=== PATIENT | female | born 1985 | race Caucasian/White ===

== ENCOUNTER 2016-11-18 09:59 | Inpatient (IN) | payer SELFPAY ==
[2016-11-18] VITALS (14 sets, daily range): BP systolic 113–148; BP diastolic 61–97; PULSE 66–88; RESP 14–20; O2SAT 98–100
[~2016-11-18] VITALS: Ht 160 cm; Wt 59.1 kg
--- NOTE | 2016-11-18 10:14 | ED.REPORT ---
HPI-Rash / Abscess Date of Service Nov 18, 2016 ED Provider: Sathish Phillips MD Patient is a 31 y/o female with a hx of meth and herion drug use, presenting to the ED c/o abscess on the right shoulder. Her last heroin use was two days ago. She recently took 2 mg of buprenorphine, approx 7 hours ago. There are no other abbesses present on her body at this time was. Associated symptoms are myalgia and generalized weakness. She denies fever, neck pain, vomiting, and abdominal pain. She reports to have been clean off heroin for 22 months but relapsed 7 months ago. She reports that she has been septic before and that these symptoms feel similar. She has hep. C and does not take any daily medication. She last ate at 1730 last night. Nursing Notes Stated Complaint: ABSCESS Chief Complaint: Extremity Trauma Nursing Notes Reviewed: Yes Allergies: Coded Allergies: No Known Allergies (Unverified , 11/18/16) General Time Seen by MD: 10:13 Chief Complaint Abscess Hx Obtained From: Patient Arrived By: Walk-in Associated with: Reports Myalgia, Reports Weakness Recent Healthcare: No recent doctor visit, No recent hospitalization Similar Sx Previous: Yes (abscess drainage x3) Past Medical History Past Medical History Hep C. Reports: Heroin use, IV Drug use Past Surgical History Abscess drainage x3 Left femoral blood clot Facial SX R/T dog bite Family History denies Smoking History Unknown if Ever Smoker Social History Drug Use: IV drugs, Meth, Other Ambulatory Status Independent Review of Systems Constitutional: Reports: Weakness - generalized, Denies: Fever GI: Denies: Abdominal pain, Vomiting Musculoskeletal: Reports: Myalgia, Denies: Neck pain Complete sys rev & neg: except as marked. Physical Exam Initial Vital Signs Vital Signs (First) Date Time Temp Pulse Resp B/P Pulse Ox O2 Delivery O2 Flow Rate FiO2 11/18/16 10:03 36.7 85 120/79 Initial VS: Reviewed, Vital signs normal Head / Eyes: Atraumatic, Normocephalic Neck: Full range of motion Respiratory: Breath sounds normal, Clear to auscultation, No respiratory distress Cardiovascular: Regular rate & rhythm, Heart sounds normal, Intact distal pulses Abdomen / GI: Soft, Non-tender Neurologic: Alert, Oriented General/Constitutional: Awake, Alert Behavior: Positive: Anxious Abscess #1 Location/Condition: Positive: Erythema surrounding, Fluctuant, Location (right deltoid), Tender Right Shoulder: Positive: Tenderness present... Abscess present on the right deltoid Interpretation & Diagnostics Lab Results Interpretation Result Diagram: 11/18/16 1058 11/18/16 1058 Test 11/18/16 10:58 White Blood Count 9.2th/mm3 (3.8-10.1) Red Blood Count 5.00mil/mm3 (3.90-5.20) Hemoglobin 13.5g/dL (12.0-15.6) Hematocrit 42.4% (35.0-46.0) Mean Corpuscular Volume 84.8fL (81-100) Mean Corpuscular Hemoglobin 27.0pg (27.0-35.0) Mean Corpuscular Hemoglobin Concent 31.8% (32.0-37.0) Red Cell Distribution Width 14.0% (12.3-15.4) Platelet Count 362bil/L (150-400) Neutrophils (%) (Auto) 75.9% (40-74) Lymphocytes (%) (Auto) 17.8% (14-46) Monocytes (%) (Auto) 4.4% (4-12) Eosinophils (%) (Auto) 1.5% (0-5) Basophils (%) (Auto) 0.2% (0-3) Sodium Level 139mEq/L (134-144) Potassium Level 4.5mEq/L (3.5-5.2) Chloride Level 98mEq/L (97-108) Carbon Dioxide Level 25mmol/L (18-29) Blood Urea Nitrogen 18mg/dL (6-20) Creatinine 0.55mg/dL (0.57-1.00) Estimat Glomerular Filtration Rate 183mL/min (>59) Glucose Level 90mg/dL (60-99) Lactic Acid Level 1.6mmol/L (0.4-2.0) Calcium Level 9.8mg/dL (8.5-10.1) Total Bilirubin 0.2mg/dL (0.0-1.2) Aspartate Amino Transf (AST/SGOT) 28U/L (0-50) Alanine Aminotransferase (ALT/SGPT) 21U/L (0-32) Alkaline Phosphatase 120U/L (25-150) Total Protein 9.4g/dL (6.4-8.4) Albumin 4.3g/dL (3.4-5.0) Procedures Incision & Drainage Abscess Time: 10:30 Procedure Performed by: ED physician Location of Abscess: Right shoulder Re-Eval/Medical Decision Re-Evaluation/Progress : Time of Eval: 11:36 Re-Evaluation/Progress Note: Rececked pt. Discussed plan of admmission for surgery. Pt understands and agrees with the plan. All questions addressed at this time. Consultation #1: Referral / Consult Name: Kirby De León MD Consulted With: Surgeon Call Returned at: 10:51 Marketing Analytics Specialist: Will see patient, Agrees with eval, Agrees with plan, Requested OR, Accepts admit Note: Discussed patients case, accepts to OR, requeting hospitalist consult. Consultation #2: Referral / Consult Name: Kimberly Swain DO Consulted With: Hospitalist Call Returned at: 11:14 Marketing Analytics Specialist: Will see patient, Agrees with eval, Agrees with plan Note: Discussed patients case, agrees to consult. Counseled Regarding: Diagnosis, Lab results, Need for admission Discharge & Departure Impression: Primary Impression: Abscess Additional Impression: Opiate addiction Disposition: ADMITTED TO HOSPITAL Discharge Condition All VS Reviewed: Yes Condition: Stable Referrals: Dany Medina MD (PCP) Scribe Attestation Portions of this note were transcribed by Perla Valdez & Katy Barfield. I, Dr. Steward personally performed the history, physical exam and medical decision-making; I reviewed and confirmed the accuracy of the information in the transcribed note. Signed by: Perla Barfield.Kobe, 11/18/2016 and 11:38. copies to: Dany Medina MD, Kirk H MD Nov 18, 2016 10:14 Perla Valdez Nov 18, 2016 10:21 KATY BARFIELD Nov 18, 2016 11:31
[2016-11-18] MEDS ORDERED: 0.9% Sodium Chloride 1,000 ML IV ONE (10:35)
[2016-11-18 11:08] LABS: BASOPHILS % (AUTO) 0.2 % (0-3); EOSINOPHILS % (AUTO) 1.5 % (0-5); MONOCYTES % (AUTO) 4.4 % (4-12); Mean Corpuscular Volume 84.8 fL (81-100); NEUTROPHILS % (AUTO) 75.9 % (40-74); Platelet Count 362 bil/L (150-400)
--- NOTE | 2016-11-18 11:51 | PCM.HPSURG ---
Subjective Date of Service: Nov 18, 2016 Referring Provider: Admitting Physician: Kirby De León MD Primary Care Physician: Dany Medina MD Attending Physician: Kirby De León MD Chief Complaint R shoulder pain and swelling History of Present Illness 31-year-old IV/IM heroin user presents to the emergency department with right shoulder swelling for the last 2 weeks. She reports it started small and she thought it would go away however it has continued to enlarge. She is feeling achy and like she is septic which she has been before. She has a history of multiple abscesses in multiple locations over her body. She in fact has had her right deltoid abscess drained before. She had not used drugs for 22 months before her relapse 7 months ago. Her last heroin use was about 48 hours ago and 7 hours prior to arrival she used 2 mg of Suboxone. In the emergency department she is afebrile, normotensive, is not experiencing tachycardia. Her white count is normal. No history of MRSA infection and takes no medications at home with the exception of occasional Suboxone. Allergy Allergies: Coded Allergies: No Known Allergies (Unverified , 11/18/16) Past Surgical History Operations: Multiple locations of abscess incision and drainage Social History Occupation: not currently working Hx Alcohol Use: No Hx Substance Use: Yes (HEROIN via injection, METH via inhalation) Hx Tobacco Use: Yes PMH Other History Diabetes: No Other History/Comments Deep vein thrombosis and left femoral vein 6 years ago. Used Coumadin but is not currently. Hepatitis C, no current treatment Patient lives in [place], is but . She has 2 children. Social History Hx Alcohol Use: NoHx Substance Use: Yes (HEROIN, METH) Smoking Status: Current Every Day Smoker (1/2-1 pk per day) Living Arrangement: with Family Family History Family History: Patient reports no significant family history of medical illness. Review of Systems Constitutional: Reports: Malaise, Denies: Chills, Fever Cardiovascular: Denies: Chest Pain Respiratory: Denies: Cough Gastrointestinal: Denies: Nausea, Vomiting Genitourinary: Denies: Dysuria, Hematuria Musculoskeletal: Reports: Redness (right deltoid), Swelling (right deltoid) Skin: Reports: Scars (diffuse in many areas of the body from incision and drainage) Psychologic: Reports: Nervousness, Denies: Disorientation Additional Information A comprehensive review of systems was conducted with the patient and found to be negative except as above and in the History of Present Illness. H&P Surgical Exam Exam General: Cooperative, Mild Distress Neck: Supple Lungs: Clear to Auscultation, Normal Air Movement Heart: Regular Rate/Rhythm, No Murmurs/Rubs/Gallops Abdomen: Benign Extremities: Other (erythematous swollen annular area over right deltoid measuring approximately 15 cm in diameter) Neuro: Grossly Neurologically Intact Catheters: None Lab & Micro Results: White blood cell count normal at 9.2. Lactic acid 1.6. Diagnostics: negative urine test Assessment & Plan Assessment 31-year-old intravenous heroin user presents to the emergency department with right deltoid abscess gradually getting bigger over the last 2 weeks. She has history of DVT 6 years ago. Last substance use with 2 mg of Suboxone early the morning of 11/18/2016. Urine test in the ED negative. Plan: 1. Patient will go to surgery for incision and drainage today. 2. Consult hospitalist team for pain control and antibiotics. 3. Wound care consult for Sunday. Patient was admitted under inpatient status with expected length of stay greater than 2 midnights due to severity of presenting symptoms, and extent of abscess. Resuscitation Status: CPR: Attempt Resuscitation Attending Statement: I personally interviewed and examined the pt, and I agree with Dr. Cohen's assessment and plan. copies: Kirby De León MD, Erika R DO Nov 18, 2016 11:51 Kirby De León MD Nov 21, 2016 06:57
[2016-11-18] MEDS: fentaNYL-PF 50 mCg/mL 2 mL Inj IVPUSH PRN ×3 (11:55→21:55)
[2016-11-18] MEDS ORDERED: Vancomycin Dose per Pharmacist XX ONE (12:15)
[2016-11-18] MEDS ORDERED: Meropenem Inj 1,000 MG in 0.9% Sodium Chloride 100 ML IV ONE (12:15)
[2016-11-18] MEDS ORDERED: Clindamycin Inj 900 MG in IV Premix 1 EACH IV ONE (12:15)
[2016-11-18] MEDS ORDERED: Vancomycin Inj 1,000 MG in IV Premix 1 EACH IV ONE (12:25)
--- NOTE | 2016-11-18 12:32 | PCM.HPANE ---
Patient Data Surgeon Admitting Provider:Kirby De León MD Attending Provider:Kirby De León MD Primary Care Physician:Dany Medina MD Other Provider: Reason for Visit Abscess Ht/WT & BMI Height (Feet): 5 Height (Inches): 3 Weight (Kilograms): 59.09 Body Mass Index Allergies Coded Allergies: No Known Allergies (Unverified , 11/18/16) Past Anesthesia History Anesthesia History: Denies:: Abnormal Airway, Anesthesia Reactions, Difficult Intubation, Fam Anesthesia Reaction, Fam Malignant Hypertherm, Malignant Hyperthermia Diabetes History Hx Diabetes?: No Medications Hypertension Medication: No Home Meds Incl Beta Felix: No History History of ENT Problems?: No HEENT History: Denies:: Abnormal Airway Cataracts Difficult Intubation Dysphagia Glaucoma Hearing Problem Sinus Problem TMJ Denture Type: None Teeth Condition: Within Normal Limits Hx of Heart Problems?: No Cardiovascular History: Denies:: AICD Abdominal Aortic Aneurism Atrial Fibrillation Cardiac Surgery Chest Pain Congestive Heart Failure Coronary Artery Disease Edema Heart Murmur Hypertension Irregular Heartbeat Pacemaker Peripheral Vascular Rheumatic Fever Thrombophlebitis Valvular Heart Disease Hx of Respiratory Problem?: No Respiratory History: Denies:: Asthma COPD Chest Surgery Cough Dyspnea Emphysema Hemoptysis Oxygen Administration Pneumonia Pulmonary Embolism Tuberculosis Use of C-PAP Machine Use of Inhalers / NEBS Hx Neurologic Problems?: No Neurological History: Denies:: Alzheimer's Disease CVA Dementia Dizziness Headaches Multiple Sclerosis Parkinson's Disease Peripheral Neuropathy Seizures TIA Hx of GI Problems?: No Hx of Problems?: No Hx Musculoskeletal Problems?: No Hx of Psycho/Social Problems?: Yes Psycho Social History: Positive for:: Anxiety Hx Surgeries?: Yes (ABSCESS DRAINAGE X3, LEFT FEMORAL BLOOD CLOT, FACIAL SX R/ T DOG BITE) Hx Diabetes: No Occupation: not currently working Hx Alcohol Use: YesHx Substance Use: Yes (HEROIN via injection, METH via inhalation) Smoking Status: Current Every Day Smoker (1/2-1 pk per day) Unknown if Ever Smoker Stop/Bang Treated for Sleep Apnea?: No Do You Have a CPAP Machine?: No CAITLYN Risk Assessment: Low Risk, <3 Yes Risk Assessment Category Category 1A: Patient has history of documented sleep apnea, and HAS NOT received any narcotic, sedative or anesthesia administration during this stay. Category 1B: Patient has history of documented sleep apnea, and HAS received any narcotic , sedative or anesthesia administration during this stay Category 2: Patient has SUSPECTED Obstructive Sleep Apnea, and HAS received any narcotic , sedative or anesthesia administration during this stay. Category 3: Patient has SUSPECTED Obstructive Sleep Apnea and HAS NOT received narcotic, sedative or anesthesia administration during this stay. Category 4: Outpatient in Procedural Areas with known sleep apnea or who screen positive for High Risk via the STOP/BANG questionnaire. Exam Exam Vital Signs Vital Signs Date Time Temp Pulse Resp B/P Pulse Ox O2 Delivery O2 Flow Rate FiO2 11/18/16 11:31 37.5 11/18/16 10:03 36.7 85 120/79 General Appearance: Oriented X3 HEENT/AIRWAY: MP 2 Lungs: Clear to Auscultation, Normal Air Movement Heart: Regular Rate/Rhythm, No Murmurs/Rubs/Gallops Meds/Labs/Diagnostics Admission Meds Current Medications Sodium Chloride (Normal Saline) 1,000 ml @ 0 mls/hr Q0M ONCE IV Last administered on 11/18/16t 11:29; Start 11/18/16 at 10:35; Stop 11/18/16 at 10:37; Status DC Labs Test 11/18/16 10:58 11/18/16 12:16 White Blood Count 9.2th/mm3 (3.8-10.1) Red Blood Count 5.00mil/mm3 (3.90-5.20) Hemoglobin 13.5g/dL (12.0-15.6) Hematocrit 42.4% (35.0-46.0) Mean Corpuscular Volume 84.8fL (81-100) Mean Corpuscular Hemoglobin 27.0pg (27.0-35.0) Mean Corpuscular Hemoglobin Concent 31.8% (32.0-37.0) Red Cell Distribution Width 14.0% (12.3-15.4) Platelet Count 362bil/L (150-400) Neutrophils (%) (Auto) 75.9% (40-74) Lymphocytes (%) (Auto) 17.8% (14-46) Monocytes (%) (Auto) 4.4% (4-12) Eosinophils (%) (Auto) 1.5% (0-5) Basophils (%) (Auto) 0.2% (0-3) Sodium Level 139mEq/L (134-144) Potassium Level 4.5mEq/L (3.5-5.2) Chloride Level 98mEq/L (97-108) Carbon Dioxide Level 25mmol/L (18-29) Blood Urea Nitrogen 18mg/dL (6-20) Creatinine 0.55mg/dL (0.57-1.00) Estimat Glomerular Filtration Rate 183mL/min (>59) Glucose Level 90mg/dL (60-99) Lactic Acid Level 1.6mmol/L (0.4-2.0) Calcium Level 9.8mg/dL (8.5-10.1) Total Bilirubin 0.2mg/dL (0.0-1.2) Aspartate Amino Transf (AST/SGOT) 28U/L (0-50) Alanine Aminotransferase (ALT/SGPT) 21U/L (0-32) Alkaline Phosphatase 120U/L (25-150) Total Protein 9.4g/dL (6.4-8.4) Albumin 4.3g/dL (3.4-5.0) Plan Impression Patient chart reviewed, patient interviewed and anesthestic plan with risks, benefits, and alternatives discussed, and informed consent obtained. ASA Physical Status: ASA3 Plus Emergency Anesthetic Plan: GA Bene/Risks/Altern/Consents: Yes HP Complete Prior to Induction: Yes Gage Flores MD Nov 18, 2016 12:32
[2016-11-18] MEDS ORDERED: Lactated Ringer's 500 ML IV PRN (12:33)
[2016-11-18] MEDS ORDERED: Lactated Ringer's 1,000 ML IV SCH (12:33)
[2016-11-18] MEDS ORDERED: Dexamethasone 4 mg/mL Inj IVPUSH PRN (12:35)
[2016-11-18] MEDS ORDERED: Ondansetron 2 mg/mL 2 mL Inj IVPUSH PRN (12:35)
[2016-11-18] MEDS ORDERED: HYDROmorphone 1 mg/mL Inj IVPUSH PRN (12:35)
[2016-11-18] MEDS ORDERED: MetoCLOpramide 5 mg/mL 2 mL Inj IVPUSH PRN (12:35)
[2016-11-18] MEDS ORDERED: Phenylephrine 10,000 mCg/mL Inj IVPUSH PRN (12:35)
[2016-11-18] MEDS ORDERED: fentaNYL-PF 50 mCg/mL 2 mL Inj IVPUSH PRN (12:35)
[2016-11-18] MEDS ORDERED: EPHEDrine Sulfate 50 mg/mL Inj IVPUSH PRN (12:35)
--- NOTE | 2016-11-18 13:52 | PCM.ANEP1 ---
Post Anesthesia PACU Phase 1 Assessment Vital Signs Vital Signs Date Time Temp Pulse Resp B/P Pulse Ox O2 Delivery O2 Flow Rate FiO2 11/18/16 12:56 86 14 133/81 100 Room Air 11/18/16 12:35 86 14 133/81 100 Room Air 11/18/16 11:31 37.5 11/18/16 10:03 36.7 85 120/79 Anesthetic Administered: GA Level of Alertness: Sleepy, easy to arouse Pain: No Pain Scale Score: 8 Nausea or Vomiting: No CV Function & Hydration Stable: Yes Airway Device: Lungs: Clear to Auscultation, Normal Air Movement PACU Phase 2 Assessment Patient Instructions Provided: N/A Gage Flores MD Nov 18, 2016 13:52
--- NOTE | 2016-11-18 14:26 | OP ---
[address] [address] OPERATIVE REPORT PATIENT: SHIMA NEIL : 1985 MR#: [id number] ADMIT: 11/18/2016 JOB ID: [id number] DATE OF SURGERY: 11/18/2016 SURGEON: Kirby De León M.D. TYPIST: Adri Cohen, resident 1. ANESTHESIA: General. PREOPERATIVE DIAGNOSIS(ES): A right shoulder/deltoid abscess. POSTOPERATIVE DIAGNOSIS(ES): A right shoulder/deltoid abscess. PRINCIPAL PROCEDURE: Incision and drainage of large right shoulder/deltoid abscess. INDICATION FOR PROCEDURE: The patient is a 31-year-old female with IV heroin drug abuse who has had multiple prior incisions and drainages of various abscesses. The patient presented to the emergency department today with a large tender right deltoid/shoulder abscess. PRINCIPAL FINDING: Successful I and D. The incision was 15 cm. Cultures were obtained and sent. PROCEDURE COURSE: The patient was brought to the operating table after receiving IV antibiotics in the emergency department. The patient was given SCDs and she was provided with general anesthesia. A time-out was performed. The patient's right shoulder region was then prepped and draped in the usual sterile fashion. Next, using a syringe and needle, we aspirated pus directly over the fluctuant area and this was sent for cultures. Next, along the fluctuant area in a diagonal fashion, the skin incision was made across the deltoid and shoulder region and we encountered and drained copious amount of purulent pus. The abscess cavity was then unroofed in all directions to make sure nothing was undrained. Subcutaneous was irrigated. Hemostasis was verified. Some necrotic material was excised. We did not get into the shoulder joint. After copious irrigation and hemostasis, the wound was then packed with Kerlix soaked in saline. The length of the incision across the shoulder joint was approximately 15 cm. A sterile dressing was then placed over the wound. The patient was then awakened and taken back to the recovery room in stable satisfactory condition. By the end of the procedure, needle counts and sponge counts were correct.
[2016-11-18] MEDS ORDERED: HYDROmorphone 2 mg/mL Inj ONE (14:34)
[2016-11-18] MEDS ORDERED: MetoCLOpramide 5 mg/mL 2 mL Inj ONE (14:34)
[2016-11-18] MEDS ORDERED: Propofol 10,000 mCg/mL 20 mL Inj ONE (14:34)
[2016-11-18] MEDS ORDERED: Ondansetron 2 mg/mL 2 mL Inj ONE (14:34)
--- NOTE | 2016-11-18 15:34 | NUR ---
received to room 1029 from PACU pt drowsy but arouses easily. VSS, dressing C/D/I, ortho signs OK, denies nausea, boyfriend here with belongings, called security to lock up belongings in closet because pt is an active Heroin user.
[2016-11-18] MEDS: HYDROmorphone 1 mg/mL Inj IVPUSH PRN ×2 (17:47→21:55)
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
[2016-11-18] MEDS ORDERED: Piperacillin-Tazo 3.375 Gm Inj 3.375 GM in Dextrose 5% Minibag Plus 50 ML IV SCH (22:00)
[2016-11-18] MEDS: Vancomycin Inj 1,000 MG in IV Premix 1 EACH IV SCH (22:07)
[2016-11-19] MEDS: HYDROmorphone 1 mg/mL Inj IVPUSH PRN ×3 (05:22→13:13)
[2016-11-19] MEDS: Vancomycin Inj 1,000 MG in IV Premix 1 EACH IV SCH (05:22)
[2016-11-19 05:33] VITALS: BP 120/81; PULSE 70; RESP 16; O2SAT 99
--- NOTE | 2016-11-19 06:39 | NUR ---
Heroin/pain/anxiety Refusal to lock personal items in locker, significant other instead places items in car. 1999 pt and boyfriend state it is okay to lock items in locker, called security to lock items. 2129 pt wakes up, NAC and clinic charge nurse enter pt room while she has belongings in bed with her and pt requests AMA. Notified of dangers and risks. Pt agrees to surrend belongings to staff and remain in hospital for treatment of infection- heroin, needle, and other paraphenalia willingly surrendered to staff, collected and removed by security at 2139. Pt understands she must keep door and window to cuevas open, encouraged to discuss anxiety and pain with staff and prevent relapse to drug use. 2144 given dilauded and ativan for pain/withdrawals. Boyfriend remains sleeping in room. No further incidents this shift. Wound is weeping serous drainage, pt refuses ice. Ibuprofen also given for swelling. Care continues
[2016-11-19 07:24] LABS: BASOPHILS % (AUTO) 0.8 % (0-3); EOSINOPHILS % (AUTO) 4.3 % (0-5); MONOCYTES % (AUTO) 7.8 % (4-12); Mean Corpuscular Hemoglobin 27.6 pg (27.0-35.0); Mean Corpuscular Volume 82.8 fL (81-100); NEUTROPHILS % (AUTO) 58.2 % (40-74); Platelet Count 308 bil/L (150-400)
[2016-11-19] MEDS ORDERED: HYDROcodone-APAP 5-325 mg Tablet PO PRN (07:40)
--- NOTE | 2016-11-19 07:45 | PCM.PNSURG ---
Subjective Visit Information: Reason for Visit Abscess Surgery/Surgery Date Post-Op Day # Date of Admission: Nov 18, 2016 at 11:20 Hospital Day # Subjective: no acute events overnight, tolerated diet, on IV abx Objective Objective Awake in bed R shoulder wound -- dressing changed at bedside, no evidence of pus in the wound Vital Sign- Last 8 Hours Date Time Temp Pulse Resp B/P Pulse Ox O2 Delivery O2 Flow Rate FiO2 11/19/16 05:33 36.4 70 16 120/81 99 Room Air 11/18/16 23:56 36.5 79 16 113/69 98 Room Air Intake and Output- Last 8 Hour 11/19/16 Cumulative From/Thru 07:00 11/18/16 10:03 - 11/19/16 05:52 Intake Total 1137 ml 2991 ml Output Total 750 ml 750 ml Balance 387 ml 2241 ml Intake Oral 1137 ml 1491 ml IV Total 1500 ml Output Urine Total 750 ml 750 ml # Voids 1 # Bowel Movements 0 0 Result Diagram: 11/19/16 0500 11/18/16 1058 Assessment & Plan Impression POD #1 s/p R shoulder abscess I & D IVDA Problems: Plan pipeman to see tomorrow Continue IV abx Pain control VTE Prophylaxis: Sub-Q Enoxaparin Resuscitation Status: CPR: Attempt Resuscitation Kirby De León MD Nov 19, 2016 07:45
[2016-11-19] MEDS ORDERED: Piperacillin-Tazo 3.375 Gm Inj 3.375 GM in Dextrose 5% Minibag Plus 50 ML IV SCH (08:00)
[2016-11-19 09:11] VITALS: BP 121/80; PULSE 73; RESP 18; O2SAT 100
[2016-11-19] MEDS ORDERED: Vancomycin Dose per Pharmacist XX SCH (11:41)
[2016-11-19 13:01] VITALS: BP 128/80; PULSE 83; RESP 18; O2SAT 99
--- NOTE | 2016-11-19 14:21 | PCM.PHAPRO ---
Progress Medical management VANCOMYCIN DOSING PER PHARMACY Indication: Abscess WBC: 7.8; afebrile SCr: 0.55 (stable) Blood cultures: NGTD Current dose: 1,000mg Q8h Trough: 15.3 A/P -Therapeutic level. Trough drawn prior to 4th dose factoring in load or same strength. Debridement on 11/18. -Will continue with vancomycin 1,000 mg Q8h -Concerned about accumulation since with no true loading dose given. Will draw repeat trough 11/20@1200 Rigo Hylton, PharmD Rigo Hylton Nov 19, 2016 14:21
--- NOTE | 2016-11-19 14:26 | NUR ---
pt left AMA "I don't care if I get kicked out, I have to go outside" Pt repeatedly demanded to be allowed to leave unit and smoke or take a walk. She was informed multiple times that pts are not allowed to leave floor unaccompanied by staff. She threatened to leave AMA several times since admit, because we "weren't doing anything for her". She was also informed of the possibility that ER may refuse to readmit her if she leaves AMA. She was accompanied by her boyfriend Gage.
--- NOTE | 2016-11-19 16:04 | NUR ---
Social Work Note: Screen Note/Substance Use Assessment Data& Assessment: Ricarda Cho is a 31 year old female admitted on 11/18/2016 for abscess. Pt is listed as self pay insurance coverage with Lawrence Medina MD for primary care. Pt lives in [place] but is currently homeless. Current Circumstances: Pt presented to ED with abscess due to IV heroin use. Per MD order, SW met with pt at bedside to discuss substance use hx and offer resources. Hx of Substance Use: Pt reports using $60-80 worth of heroin daily as well as smoking meth. Pt states that she has been using heroin for 17 years. Hx of tx programs/detox: Pt reports going to inpt tx 5 times including [facility] in and [facility] in [facility]. Pt has also been involved in out pt tx at [facility]. Hx of w/d symptoms: Pt reports sweats, anxiousness, and irritability. Family hx: Pt mother is dependent on prescription pills. Hx of sobriety: Pt reports sobriety for 22 months with her terri being her strongest support in remaining clean. Pt states that she had teeth pulled 7 months ago and was prescribed Percocet which led to her relapse. Patients Perception of the consequences of use: Pt does not not appear to have good insight into the connection between her decline in health and her substance use. Suicide Risk: Pt denies any thoughts of harming herself or others. Pt denies any SI. Pt provided with Crisis Line number to reference if she ever felt unsafe or suicidal in the future. Motivation for tx: Pt interested in Subaxone or Methadone tx program. Pt aware of [facility] and had begun the process of being established with their program, however she did not have insurance and was not able to proceed. Pt accepted Substance Use resource information. Pt informed that if she stays another night, [facility] staff would be able to meet with her at bedside to discuss treatment program options. Pt states she is unsure if she will leave AMA or not due to wanting a cigarette. Discharge Plan: [facility] provided pt with needle exchange program information, CD resources, Crisis Line information and Medicaid application to complete and bring to [facility] on an outpt basis. Pt did elope to smoke a cigarette after being told she would not be able to return to her room and would have to be readmitted to the hospital through the ED. Pt resources provided by [facility] with pt belongings. If pt returns, SW to call [facility] to help pt sign up for Medicaid pending eligibility and have pt sign MARTINA to speak with [facility] staff at bedside to discuss treatment options. SHAWNA Meyer
--- NOTE | 2016-11-20 00:51 | PCM.PNMED ---
Subjective Date of Service Nov 20, 2016 Subjective Patient was seen by the staff on several occasions trying to use drugs in her room, she was told to limit number of visitors per hospital policy. She was also told not to leave the facility, but patient left to go outside to have a smoke. As this is considered elopment, patient's IV is removed and she was asked to leave the are and get readmitted to the hospital via ED. I have not had a chance to see the patient before patient eloped. It appears that the primary team surgeon Dr. De León has seen the patient for a dressing change , he was notified of patient's elopement Nursing notes: "pt left AMA "I don't care if I get kicked out, I have to go outside" Pt repeatedly demanded to be allowed to leave unit and smoke or take a walk. She was informed multiple times that pts are not allowed to leave floor unaccompanied by staff. She threatened to leave AMA several times since admit, because we "weren't doing anything for her". She was also informed of the possibility that ER may refuse to readmit her if she leaves AMA. She was accompanied by her boyfriend Gage. " Exam Vital Signs Vital Sign - Last Date Time Temp Pulse Resp B/P Pulse Ox O2 Delivery O2 Flow Rate FiO2 11/19/16 13:01 36.9 83 18 128/80 99 Room Air 11/18/16 13:45 8 Intake and Output 11/19/16 11/19/16 11/20/16 Cumulative From/Thru 15:00 23:00 07:00 11/18/16 10:03 - 11/19/16 05:52 Intake Total 2991 ml Output Total 750 ml Balance 2241 ml Intake Oral 1491 ml IV Total 1500 ml Output Urine Total 750 ml # Voids 1 # Bowel Movements 0 Lab and Diagnostics Result Diagram: 11/19/16 0500 11/19/16 0600 Assessment & Plan GI Prophylaxis: Not indicated VTE Prophylaxis: Sub-Q Enoxaparin VTE Mechanical Devices: Intermittant Pneumatic CD Resuscitation Status: CPR: Attempt Resuscitation Kimberly Swain DO Nov 20, 2016 00:51
--- NOTE | 2016-11-20 11:27 | PCM.DC.SUR ---
Discharge Summary Date of Service: Date of Hospital Admission: Nov 18, 2016 at 11:20 Date of Operation(s): 11/18/2016 Date of Discharge: 11/19/2016 Diagnosis at Time of Discharge Primary diagnosis: Right shoulder/deltoid abscess Other chronic conditions: 1. IV heroin use 2. Methamphetamine smoker 3. Daily cigarette smoker 4. Hepatitis C 5. 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 Problems: Operation Incision and drainage of large right shoulder/deltoid abscess Brief History and Physical: The patient is a 31-year-old female with IV heroin drug abuse who has had multiple prior incisions and drainages of various abscesses. The patient presented to the emergency department with a large tender right deltoid/shoulder abscess. Consultants: Hospitalist Hospital Course: The patient was admitted and underwent the above-mentioned operation without complication. The following day her wound was clean. Admission was continued for wound care. The patient left the hospital AGAINST MEDICAL ADVICE later on her first postsurgical day. Pathology: None Disposition: The patient left the hospital AMA on her first postsurgical day. copies to: Dany Medina MD, Fred H PA-C Nov 20, 2016 11:27
[2016-11-20] MEDS ORDERED: Vancomycin Serum Trough XX ONE (12:00)
== END 2016-11-19 14:35 | disposition left against medical advice (07) | DRG 603 ==
LOC: SED 09:59 → OSC 11:20
PROVIDERS: ADMIT Surgery; ATTEND Surgery
PROC: 0J9D0ZX Drainage of Right Upper Arm Subcutaneous Tissue and Fascia, Open Approach, Diagnostic (ICD-10-PCS; principal; 2016-11-18 12:30)
DX: L02.413 Cutaneous abscess of right upper limb (principal); F11.20 Opioid dependence, uncomplicated; F17.200 Nicotine dependence, unspecified, uncomplicated; M79.1 Myalgia; F15.19 Other stimulant abuse with unspecified stimulant-induced disorder